=== PATIENT | female | born 2005 | race Caucasian/White ===

== ENCOUNTER 2024-06-24 09:00 | Outpatient (AMB) | payer OTHER, SELFPAY ==
--- NOTE | 2024-06-24 09:04 | MHC.PC.OV ---
Vital Signs 06/24/24 09:05 Height 6 ft 3 in Weight 241 lb BMI 30.1 BP 122/68 Blood Pressure Location Lt brachial Position Sitting Pulse 82 Pulse Source Pulse Oximeter Pulse Oximetry (%) 96 Oxygen Delivery Method Room Air Intake Visit Reasons: annual exam/establish care Field Service Coordinator Required: No Accompanied by: Self / Same As Patient Allergies No Known Allergies Allergy (Verified 06/24/24 09:15) Medication List - Last Reconciled 06/24/24 by Kat Rojas PA-C fluvoxamine ER 150 mg PO BEDTIME levonorgestrel-ethinyl estrad 0.1-20 mg-mcg (Vienva) 1 tab PO DAILY Tobacco use date assessed: 06/24/24 Dental Screening Dental Screen Date: 06/24/24 Did you have a dental visit in the last 12 months?: Yes Did you have a dental problem in the last 6 months where you did not have access to dental care?: No Was dental information given to patient?: Patient has dentist HPI annual exam/establish care HPI Details 18 year old female coming to the office for the first time. She has scheduled an appointment with [facility] in [place] for annual well woman exams and pap smear. She follows with [facility] dermatology and recently had keloid on the left ear removed. SHe does have a few concerns today. She has a rash on her stomach which she previously had on her chest and was treated with anti fungal cream with good resolution. She describes the rash as light yellow spots that are not itchy or painful. She also has a mole on her back that has been growing over the last several years. She does have a history of anxiety and depression and is seeing a counselor at [facility]. [facility] Surgical History (Updated 06/24/24 @ 09:16 by Kat Rojas PA-C) Hx of appendectomy Family History (Updated 06/24/24 @ 09:17 by Kat Rojas PA-C) Father Melanoma Maternal Grandmother Colon cancer Mother Afib Other Mental health disorder Social History Housing: Apartment Patient Tobacco Use Status: Never used Tobacco Tobacco use type: Cigarette e-Cigarette/Vaping Use: Never Used Second Hand Smoke Exposure: No service: No Current occupational status: employed Current occupation: [employer] Cognitive needs: No Hearing needs: No Vision needs: Yes Female Reproductive History Menstrual control method: pills Total pregnancies: 0 Questionnaire PHQ-9 Over the last 2 weeks, how often have you been bothered by any of the following problems? 1. Little interest or pleasure in doing things: several days 2. Feeling down, depressed, or hopeless: several days 3. Trouble falling or staying asleep, or sleeping too much: several days 4. Feeling tired or having little energy: several days 5. Poor appetite or overeating: not at all 6. Feeling bad about yourself - or that you are a failure or have let yourself or your family down: several days 7. Trouble concentrating on things, such as reading the newspaper or watching television: not at all 8. Moving or speaking so slowly that other people could have noticed. Or the opposite - being so fidgety or restless that you have been moving around a lot more than usual: not at all 9. Thoughts that you would be better off or of hurting yourself in some way: not at all Total score: 5 Depression Screening Interpretation: Positive Depression Screening Follow-up: Existing condition and In treatment Depression Screening Done: Yes Source: Developed by Drs. Velasquez Alvarez, Gerri Collins, Roshan Fuller and colleagues, with an educational dez from [employer]. Thrive Questionnaire Date Thrive assessed: 06/24/24 I am a: Patient What is your living situation today?: I have a steady place to live Within the past 12 months, did the food you bought not last and you didn't have the money to get more?: Never true Within the past 12 months, did you worry whether your food would run out before you got money to buy more?: Never true Do you have trouble paying for medicines?: No Do you have trouble getting transportation to medical appointments?: No Do you have trouble paying your heating and electricity bill?: No Do you have trouble taking care of your child, family member or friend?: No Do you have trouble with day-to-day activities such as bathing, preparing meals, shopping, managing finances, etc.?: No Are you currently unemployed and looking for a job?: No Are you interested in more education?: No Please select the resources that you would like help with: None Currently or been in a relationship where the following occur: No concerns reported THRIVE Score: 0 AUDIT C Alcohol Use Questionnaire (AUDIT-C) 1. How often do you have a drink containing alcohol?: Monthly or less 2. How many drinks containing alcohol do you have on a typical day when you are drinking?: 1 or 2 3. How often do you have six or more drinks on one occasion?: Never Total Score: 1 JOSE JUAN-7 AMB Questionnaire JOSE JUAN-7 Date JOSE JUAN - 7 assessed: 06/24/24 Feeling nervous, anxious, or on edge: 3 = Nearly every day Not being able to stop or control worryin = More than half the days Worrying too much about different things: 2 = More than half the days Trouble relaxin = Several days Being so restless that it is hard to sit still: 1 = Several days Becoming easily annoyed or irritable: 1 = Several days Feeling afraid as if something awful might happen: 2 = More than half the days Total JOSE JUAN-7 score (0-4 normal; 5-9 mild; 10-14 moderate; 15-21 severe): 12 Source: Developed by Drs. Velasquez Alvarez, Gerri Collins, Roshan Fuller and colleagues, with an educational dez from [employer]. JOSE JUAN-7 Assessment Billing JOSE JUAN-7 Assessment Tool: JOSE JUAN-7 Assessment 62980 Review of Systems Const Denies body aches, Denies fatigue, Denies fever(s), Denies frequent falls, Denies headache(s) and Denies weakness Eyes Reports no additional complaints and Denies change in vision ENT Denies dysphagia, Denies dizziness, Denies facial pain, Denies headache(s), Denies nasal congestion and Denies odynophagia Card Denies chest pain, Denies syncope, Denies irregular heart rhythm, Denies leg edema, Denies lightheadedness and Denies dyspnea Resp Denies cough and Denies dyspnea GI Denies constipation, Denies dysphagia, Denies dyspepsia, Denies diarrhea, Denies nausea, Denies odynophagia and Denies vomiting Denies urinary frequency, Denies dysuria, Denies urinary hesitancy and Denies urinary urgency Musc Denies back pain and Denies myalgias Skin/Breast Reports as per HPI Neuro Denies dizziness, Denies syncope, Denies frequent falls, Denies headache(s) and Denies weakness Psych Reports anxiety and Reports depression Endo Denies fatigue Physical exam (Primary Care) BMI result Body Mass Index 30.1 PHQ-9: PHQ-9 Score PHQ-9: Total score 5 06/24/24 09:04 Depression Screening Interpretation: Positive Depression Screening Follow-up: Existing condition and In treatment Currently or been in a relationship where the following occur: No concerns reported Const General: cooperative, healthy appearing, comfortable and no acute distress Orientation/consciousness: patient oriented x3 HENMT Head: Yes normocephalic Ears: hearing grossly normal bilaterally, external ears normal, TM's normal bilaterally and EAC's normal General nose exam: Normal external nose present Face and sinus: Yes normal facial exam and Yes sinuses nontender Mouth: Normal oral and palatal mucosa present and tongue normal Throat: Yes posterior oropharynx normal Eyes General: appearance normal, both eyes and all related structures Conjunctivae: conjunctivae normal Pupils: Equal, round and reactive pupils present EOM: EOMs intact bilaterally and No Nystagmus present Neck Neck: Yes normal visual inspection, Yes full ROM and Yes no lymphadenopathy Chest Chest palpation & inspection: normal inspection of the chest Resp Effort & Inspection: normal respiratory effort Auscultation: clear to auscultation bilaterally, no crackles, no rales, no rhonchi, no wheezes and breath sounds present Cardio Rate: regular rate Rhythm: regular rhythm Peripheral pulses: radial pulses present and dorsalis pedis present GI Inspection: Yes normal to inspection and No Abdominal wall edema Palpation (GI): Soft to palpation, not firm, Tenderness to palpation present (GI) (Over incision site) suprapubicly, no guarding and not rigid Auscultation: normal bowel sounds Rectal Exam - Female: deferred General: Yes no CVA tenderness Back/Spine/Pelvis Back: no CVA tenderness Skin Other: multiple small yellow areas of discoloration on the abdomen. 1-2 cm nevi without irregular borders or pain on right mid back. Full body images: 1. nevi Neuro General: patient oriented x3 Cranial nerves: Yes Equal, round and reactive pupils present, Yes Midline tongue present, Yes Ability to bilaterally elevate shoulders present and No Nystagmus present Gait exam (Neuro): Normal gait present Extrem General: Yes normal to inspection, Yes full ROM, No no pedal edema and No edema Psych Speech and movement: Normal speech and movement present Affect: normal affect Insight: Good insight present (Psych) Judgement: Good judgement present (Psych) Assessment and Plan Assessment & Plan (1) Annual physical exam: Code(s): Z00.00 - Encounter for general adult medical examination without abnormal findings Plan: Patient is up-to-date on all routine screenings and vaccinations for her age. Updated blood work ordered today. (2) Anxiety: Code(s): F41.9 - Anxiety disorder, unspecified Plan: Currently working with a counselor with good improvement. Continue on fluvoxamine. (3) Fungal rash of torso: Code(s): B36.9 - Superficial mycosis, unspecified Plan: We will trial topical clotrimazole advised patient to follow up with Dermatology. (4) Atypical nevi: Code(s): D22.9 - Melanocytic nevi, unspecified Plan: Mole was not concerning at this time does not have irregular borders and does not bleed however she has been she had been growing. Advised patient to follow up with Dermatology for possible biopsy. (5) Suprapubic pain: Code(s): R10.2 - Pelvic and perineal pain Plan: Patient did have pain to palpation over suprapubic area and incision sites. Most likely related to deep scar tissue. Ordered urinalysis for further evaluation. Plan This note was constructed using voice recognition software. While every effort has been made to ensure accuracy and gang punch operator, still areas may have been included sometimes these areas may affect the content or meeting of the given symptoms. Total time spent caring for the patient today was 30 minutes. This includes time spent before the visit reviewing the chart, time spent during the visit, and time spent after the visit and documentation. Orders: Orders Complete Blood Count Auto Diff Today Z00.00 - Encounter for general adult medical examination without abnormal findings Vitamin B12 and Folate Today Z00.00 - Encounter for general adult medical examination without abnormal findings Hemoglobin A1c Today Z00.00 - Encounter for general adult medical examination without abnormal findings Comprehensive Met. Panel Today Z00.00 - Encounter for general adult medical examination without abnormal findings Free T4 (Free Thyroxine) Today Z00.00 - Encounter for general adult medical examination without abnormal findings TSH reflex Free T4 Today Z00.00 - Encounter for general adult medical examination without abnormal findings Vitamin D 25-OH (D2 and D3) Today Z00.00 - Encounter for general adult medical examination without abnormal findings UA CC w/rflx Micro + Cult Today R35.89 - Other polyuria Referrals Psychiatry Outpatient Consultation Service F41.9 - Anxiety disorder, unspecified Medications: New clotrimazole 1% 1 appl topical BID 15 grams 0RF Coding Level of Care Code New Pt Prev Care 18-39yr([id number] Diagnoses Annual physical exam Z00.00 Anxiety F41.9 Fungal rash of torso B36.9 Atypical nevi D22.9 Suprapubic pain R10.2 Additional Codes JOSE JUAN-7 Assessment Billing - JOSE JUAN-7 Assessment Tool: JOSE JUAN-7 Assessment [id number] ([id number])
[2024-06-24 09:05] VITALS: BP 122/68; PULSE 82; O2SAT 96; BMI 30.1
== END 2024-06-24 09:37 | disposition home or self-care (01) ==
PROVIDERS: PCP Internal Medicine
DX: Z00.00 Encounter for general adult medical examination without abnormal findings (principal); F41.9 Anxiety disorder, unspecified; B36.9 Superficial mycosis, unspecified; D22.9 Melanocytic nevi, unspecified; R10.2 Pelvic and perineal pain

== ENCOUNTER 2024-06-24 09:00 | Outpatient (REF) | payer OTHER, SELFPAY ==
[2024-06-24 10:08] LABS: MANUAL DIFF FLAG NO
[2024-06-24 10:43] LABS: Basophils Percent Auto 0.3 % (0-2); Eosinophils Absolute Auto 0.1 X10*3/uL (0.0-0.4); Hematocrit 38.6 % (37.0-47.0); Hemoglobin 12.9 g/dl (12.0-16.0); Imm Gran Abs Auto 0.02 X10*3/uL (0.00-0.03); Imm Gran Pct Auto 0.3 % (0.0-0.4); Lymphocytes Absolute Auto 1.9 X10*3/uL (1.2-4.9); Lymphocytes Percent Auto 27.9 % (20-40); Mean Corpuscular HGB Conc 33.4 g/dl (31.0-35.0); Mean Corpuscular Volume 83.7 fL (80.0-98.0); Mean Platelet Volume 10.5 fL (9.4-12.3); Monocytes Absolute Auto 0.5 X10*3/uL (0.1-1.2); Monocytes Percent Auto 7.1 % (2-11); Neutrophils Absolute Auto 4.3 x10*3/uL (2.0-8.3); Neutrophils Percent Auto 63.4 % (45-73); Platelet Count 328 X10*3/uL (160-400); Red Blood Count 4.61 X10*6/uL (4.20-5.50); Red Cell Distribution Width 12.9 % (11.0-16.0); White Blood Count 6.8 X10*3/uL (4.8-10.8)
[2024-06-24 10:50] LABS: Estimated Average Glucose 111 mg/dL; Hemoglobin A1c % 5.5 % (<6.0)
[2024-06-24 11:14] LABS: Alanine Aminotransferase 25 U/L (0-31); Albumin Level 4.3 g/dL (3.5-5.0); Alkaline Phosphatase 119 U/L (39-117); Anion Gap 10 (12-20); Aspartate Amino Transferase 17 U/L (5-31); Bilirubin Total 0.4 mg/dL (0.0-1.0); Blood Urea Nitrogen 9 mg/dL (9-16); Calcium 9.8 mg/dL (8.4-10.2); Carbon Dioxide 27 mmol/L (22-29); Chloride 107 mmol/L (96-108); Estimated Glomerular Filt Rate > 60; Glucose Random 90 mg/dL (60-115); Potassium 4.2 mmol/L (3.3-5.1); Sodium 140 mmol/L (135-145)
[2024-06-24 11:18] LABS: Appearance Urine Clear; Color Urine Yellow; Glucose Urine UA Negative (Negative); Leukocyte Esterase Urine Trace (Negative); Nitrite Urine Negative (Negative); PH 8.5 (5.0-9.0); Specific Gravity - Urine 1.025 (1.005-1.025); UMIC TRIGGER UACC YES; Urine Blood Negative (Negative); Urine Ketones Negative (Negative); Urine Protein Negative (Neg-Trace)
[2024-06-24 11:23] LABS: Bacteria Urine Trace (None Seen); RBC Urine 0-2 /HPF (0-2); WBC Urine 0-5 /HPF (0-5)
[2024-06-24 11:24] LABS: Hyaline Casts Urine 0-2 /LPF (0-2)
[2024-06-24 11:32] LABS: Free T4 (Free Thyroxine) 0.87 ng/dL (0.71-1.85); TSH reflex Free T4 1.89 uIU/mL (0.32-4.0)
[2024-06-24 11:40] LABS: Folate 13.6 ng/mL (> or = 4.0); Vitamin B12 339 pg/mL (200-900)
[2024-07-01 11:03] LABS: Vitamin D 25-OH, D2 <4 ng/mL; Vitamin D 25-OH, D3 31 ng/mL; Vitamin D 25-OH, Total 31 ng/mL (30-100)
== END 2024-06-24 09:01 | disposition home or self-care (01) ==
LOC: HO.LAB 09:00
PROVIDERS: PCP Internal Medicine
DX: Z00.00 Encounter for general adult medical examination without abnormal findings (principal); F41.9 Anxiety disorder, unspecified; B36.9 Superficial mycosis, unspecified; D22.9 Melanocytic nevi, unspecified; R10.2 Pelvic and perineal pain
CPT/HCPCS: 36415; 80053; 81001; 81003; 82306; 82607; 82746; 83036; 84439; 84443; 85025; 96127

== ENCOUNTER 2025-06-27 08:28 | Outpatient (AMB) | payer OTHER, SELFPAY ==
[2025-06-27 08:32] VITALS: BP 136/84; PULSE 102; TEMP 36.2; O2SAT 98; BMI 30.7
--- NOTE | 2025-06-27 08:32 | A.OFFPC_ITS ---
Vital Signs 06/27/25 08:32 Height 6 ft 3 in Weight 245 lb 4 oz BMI 30.7 BP 136/84 Blood Pressure Location Lt brachial Position Sitting Pulse 102 H Pulse Source Pulse Oximeter Temp 97.1 F Temp Source Temporal Artery Scan Pulse Oximetry (%) 98 Oxygen Delivery Method Room Air Intake Visit Reasons: Annual Exam Allergies No Known Allergies Allergy (Verified 06/27/25 08:35) Medication List - Last Reconciled 06/27/25 by Kat Rojas PA-C fluvoxamine 150 mg (1.5 x 100 mg) PO BEDTIME levonorgestrel-ethinyl estrad 0.1-20 mg-mcg (Vienva) 1 tab PO DAILY meclizine 12.5 mg PO TID PRN Tobacco use date assessed: 06/27/25 Dental Screening Dental Screen Date: 06/27/25 Did you have a dental visit in the last 12 months?: Yes Did you have a dental problem in the last 6 months where you did not have access to dental care?: No Was dental information given to patient?: Patient has dentist HPI Annual Exam HPI Details 19-year-old female with a past medical h istory of anxiety last seen 06/2024 coming in for annual exam. Presenting with motion sickness, anxiety related to flying, and gastrointestinal symptoms suggestive of IBS. Motion sickness is particularly problematic during flights, leading to nausea and vomiting despite antiemetic use. Anxiety during flights, especially at takeoff and landing, exacerbates symptoms, with turb ulence also causing nausea. The patient reports abdominal cramping and spasming, with intermittent diarrhea for two months. Stress and dietary factors, including dairy, have been identified as triggers for gastrointestinal symptoms. Previous evaluations included negative parasite tests and an upcoming pelvic ultrasound for abdominal discomfort. The patient has a history of depression, managed with fluvoxamine, which she finds effective. She works on a dairy farm, contributing to a recent case of ringworm, now resolving. eye doctor: yearly [facility] Pap smear: UTD through [facility] Vaccinations: UTD - TD completed 10/2024 [facility] Surgical History Hx of appendectomy Family History Father Melanoma Maternal Grandmother Colon cancer Mother Afib Other Mental health disorder Social History Housing: Apartment Patient Tobacco Use Status: Never used Tobacco Tobacco use type: Cigarette e-Cigarette/Vaping Use: Never Used Second Hand Smoke Exposure: No service: No Current occupational status: employed Current occupation: Outright Cognitive needs: No Hearing needs: No Vision needs: Yes Questionnaire PHQ-9 Over the last 2 weeks, how often have you been bothered by any of the following problems? 1. Little interest or pleasure in doing things: several days 2. Feeling down, depressed, or hopeless: several days 3. Trouble falling or staying asleep, or sleeping too much: several days 4. Feeling tired or having little energy: several days 5. Poor appetite or overeating: not at all 6. Feeling bad about yourself - or that you are a failure or have let yourself or your family down: several days 7. Trouble concentrating on things, such as reading the newspaper or watching television: not at all 8. Moving or speaking so slowly that other people could have noticed. Or the opposite - being so fidgety or restless that you have been moving around a lot more than usual: not at all 9. Thoughts that you would be better off or of hurting yourself in some way: not at all Total score: 5 Depression Screening Interpretation: Positive Depression Screening Follow-up: Existing condition and In treatment Depression Screening Done: Yes 33783 - PHQ-9 Billing: Yes Source: Developed by Drs. Velasquez Alvarez, Gerri Collins, Roshan Fuller and colleagues, with an educational dez from [employer]. Thrive Questionnaire Date Thrive assessed: 06/20/25 I am a: Patient What is your living situation today?: I have a steady place to live Within the past 12 months, did the food you bought not last and you didn't have the money to get more?: Never true Within the past 12 months, did you worry whether your food would run out before you got money to buy more?: Never true Do you have trouble paying for medicines?: No Do you have trouble getting transportation to medical appointments?: No Do you have trouble paying your heating and electricity bill?: No Do you have trouble taking care of your child, family member or friend?: No Do you have trouble with day-to-day activities such as bathing, preparing meals, shopping, managing finances, etc.?: No Are you currently unemployed and looking for a job?: No Are you interested in more education?: No Please select the resources that you would like help with: None Currently or been in a relationship where the following occur: No concerns reported THRIVE Score: 0 AUDIT C Alcohol Use Questionnaire (AUDIT-C) 1. How often do you have a drink containing alcohol?: Never 3. How often do you have six or more drinks on one occasion?: Never Total Score: 0 JOSE JUAN-7 AMB Questionnaire JOSE JUAN-7 Date JOSE JUAN - 7 assessed: 06/27/25 Feeling nervous, anxious, or on edge: 1 = Several days Not being able to stop or control worryin = Several days Worrying too much about different things: 1 = Several days Trouble relaxin = Several days Being so restless that it is hard to sit still: 1 = Several days Becoming easily annoyed or irritable: 1 = Several days Feeling afraid as if something awful might happen: 1 = Several days Total JOSE JUAN-7 score (0-4 normal; 5-9 mild; 10-14 moderate; 15-21 severe): 7 Source: Developed by Drs. Velasquez Alvarez, Gerri Collins, Roshan Fuller and colleagues, with an educational dez from [employer]. JOSE JUAN-7 Assessment Billing JOSE JUAN-7 Assessment Tool: JOSE JUAN-7 Assessment 14719 Review of Systems Const Denies body aches, Denies fatigue, Denies fever(s), Denies frequent falls, Denies headache(s) and Denies weakness Eyes Reports no additional complaints, Denies change in vision and Reports requires corrective lenses ENT Denies dysphagia, Denies dizziness, Denies facial pain, Denies headache(s), Denies nasal congestion and Denies odynophagia Card Denies chest pain, Denies syncope, Denies irregular heart rhythm, Denies leg edema, Denies lightheadedness and Denies dyspnea Resp Denies cough and Denies dyspnea GI Reports abdominal pain (as per HPI ), Denies constipation, Denies dysphagia, Denies dyspepsia, Reports diarrhea, Denies nausea, Denies odynophagia and Denies vomiting Denies urinary frequency, Denies dysuria, Denies urinary hesitancy and Denies urinary urgency Musc Denies back pain and Denies myalgias Skin/Breast Reports system reviewed and no additional complaints, except as documented Neuro Denies dizziness, Denies syncope, Denies frequent falls, Denies headache(s) and Denies weakness Psych Reports no additional complaints Endo Denies fatigue Physical exam (Primary Care) Vital Signs: Last Vital Signs Temp 97.1 F 06/27/25 08:32 Pulse 102 H 06/27/25 08:32 BP 136/84 06/27/25 08:32 Pulse Ox 98 06/27/25 08:32 Oxygen Delivery Method Room Air 06/27/25 08:32 BMI result Body Mass Index 30.7 Tobacco/Smoking Status: Tobacco use Status Tobacco use date assessed 06/27/25 06/27/25 08:36 Patient Tobacco Use Status Never used Tobacco 06/27/25 08:34 Tobacco use type Cigarette 06/27/25 08:34 e-Cigarette/Vaping Use Never Used 06/27/25 08:34 PHQ-9: PHQ-9 Score PHQ-9: Total score 5 06/27/25 08:47 Depression Screening Interpretation: Positive Depression Screening Follow-up: Existing condition and In treatment Thrive Assessment: Date of Thrive Assessment Date Thrive assessed 06/20/25 06/27/25 08:34 Currently or been in a relationship where the following occur: No concerns reported Const General: cooperative, healthy appearing, comfortable and no acute distress Orientation/consciousness: patient oriented x3 HENMT Head: Yes normocephalic Ears: hearing grossly normal bilaterally, external ears normal, TM's normal bilaterally and EAC's normal General nose exam: Normal external nose present Face and sinus: Yes normal facial exam and Yes sinuses nontender Mouth: Normal oral and palatal mucosa present and tongue normal Throat: Yes posterior oropharynx normal Eyes General: appearance normal, both eyes and all related structures Conjunctivae: conjunctivae normal Pupils: Equal, round and reactive pupils present EOM: EOMs intact bilaterally and No Nystagmus present Neck Neck: Yes normal visual inspection, Yes full ROM and Yes no lymphadenopathy Chest Chest palpation & inspection: normal inspection of the chest Resp Effort & Inspection: normal respiratory effort Auscultation: clear to auscultation bilaterally, no crackles, no rales, no rhonchi, no wheezes and breath sounds present Cardio Rate: regular rate Rhythm: regular rhythm Peripheral pulses: radial pulses present and dorsalis pedis present GI Inspection: Yes normal to inspection and No Abdominal wall edema Palpation (GI): Soft to palpation, not firm, Tenderness to palpation present (GI) in the epigastrum and suprapubicly, no guarding and not rigid Auscultation: normal bowel sounds Rectal Exam - Female: deferred General: Yes no CVA tenderness Back/Spine/Pelvis Back: no CVA tenderness Skin General skin exam: no rashes or lesions noted Neuro General: patient oriented x3 Cranial nerves: Yes Equal, round and reactive pupils present, Yes Midline tongue present, Yes Ability to bilaterally elevate shoulders present and No Nystagmus present Gait exam (Neuro): Normal gait present Extrem General: Yes normal to inspection, Yes full ROM, No no pedal edema and No edema Psych Speech and movement: Normal speech and movement present Affect: normal affect Insight: Good insight present (Psych) Judgement: Good judgement present (Psych) Coding Level of Care Code Est Pt Prev Care 18-39y(40724) Diagnoses Annual physical exam Z00.00 Anxiety F41.9 Diarrhea R19.7 Additional Codes JOSE JUAN-7 Assessment Billing - JOSE JUAN-7 Assessment Tool: JOSE JUAN-7 Assessment 54147 ([id number]) PHQ-9 - 08318 - PHQ-9 Billing: Yes ([id number]) Assessment & Plan Assessment & Plan (1) Annual physical exam: Code(s): Z00.00 - Encounter for general adult medical examination without abnormal findings Category: Medical Plan: Patient is up to date on all recommended routine screenings ans vaccinations for her age. Blood work is ordered today. Healthy diet and regular exercise is encouraged. Plan to follow up yearly or sooner as needed. (2) Anxiety: Code(s): F41.9 - Anxiety disorder, unspecified Category: Medical Plan: The patient reports anxiety during flights, especially during takeoff and landing, exacerbating motion sickness symptoms. A short-term prescription of benzodiazepines was considered to manage anxiety, with caution advised due to potential drowsiness. (3) Diarrhea: Code(s): R19.7 - Diarrhea, unspecified Category: Medical Plan: The patient reports abdominal cramping and spasming, with intermittent diarrhea over the past two months. A pelvic ultrasound is scheduled to further investigate abdominal discomfort. Dietary modifications, including a low FODMAP diet and fiber supplementation, were recommended to manage symptoms. Plan This note was constructed using voice recognition software. While every effort has been made to ensure accuracy and small kick press operator, still areas may have been included sometimes these areas may affect the content or meeting of the given symptoms. Total time spent caring for the patient today was 30 minutes. This includes time spent before the visit reviewing the chart, time spent during the visit, and time spent after the visit and documentation. Patient was informed and verbally consented to the use of an ambient scribe for clinic note documentation during this visit. Orders: Orders Complete Blood Count Auto Diff Today R19.7 - Diarrhea, unspecified, Z00.00 - Encounter for general adult medical examination without abnormal findings Comprehensive Met. Panel Today R19.7 - Diarrhea, unspecified, Z00.00 - Encounter for general adult medical examination without abnormal findings Vitamin B12 and Folate Today R19.7 - Diarrhea, unspecified, Z13.21 - Encounter for screening for nutritional disorder Free T4 (Free Thyroxine) Today F41.9 - Anxiety disorder, unspecified, Z00.00 - Encounter for general adult medical examination without abnormal findings TSH reflex Free T4 Today F41.9 - Anxiety disorder, unspecified, Z13.29 - Encounter for screening for other suspected endocrine disorder Vitamin D 25-OH Total Today R19.7 - Diarrhea, unspecified, Z13.21 - Encounter for screening for nutritional disorder
--- OUTSIDE RECORDS SUMMARY | 2025-06-27 09:42 | XMS_ITS | Encounter Summary ---
Author Organization [facility] Address [address] [place] [address] Phone Care Team Providers Care Plans Examiner Name Role Phone Kathya Strauss DO Primary Care Provider [phone] Reason for Visit * Reason Comments Med Refill Encounter Details Date Type Department Care Team (Late st Contact Info) Description 03/18/2022 Refill [facility] [address] [place] [address] Kathya Strauss DO [address] [place] [address] Encounter for initial prescription of transdermal patch hormonal contraceptive device Social History Tobacco Use Types Packs/Day Years Used Date Smoking Tobacco: Never Smokeless Tobacco: Never Comments:Never smoker Alcohol Use Standard Drinks/Week Comments No 0 (1 standard drink = 0.6 oz pur e alcohol) Hunger/Food Answer Date Recorded In the last 12 months, did y ou or your family ever eat less than you felt you should because there wasn't enough money for food? No 04/25/2021 Stable Housing Answer Date Recorded Are you worried that in the next 2 months you may not have stable housing? No 04/25/2021 Transportation Concerns Answer Date Rec orded In the last 12 months, have you or your family ever had to go without healthcare because you didn't have a way to get there? No 04/25/2021 Hazards in Home Answer Date Recorded Think about the place you li ve. Do you have problems with any of the following? Pests (mice or roaches), mold, no/not working smoke detectors, water leaks, no window guards. No 2020 Financing Utilities Answer Date Recorde d In the last 12 months, has t he electric, gas, oil, or water company threatened to shut off your services in your home? No 04/25/2021 Safety at Home Answer Date Recorded Are you or your family worried about feeling saf e in your home? No 04/25/2021 Outside Support Answer Date Recorded Do you feel that you need mo re support from other people or programs to help you care for yourself or your family? No 04/25/2021 Understanding Health Concerns Answer Da te Recorded Do you need help understandi ng your or your child's healthcare needs (diagnosis, medications, plan, etc.)? No 04/25/2021 Financing Health Concerns Answer Date R ecorded In the last 12 months, was t here a time when your child needed to see a doctor or get medications or supplies but could not because of cost? No 04/25/2021 Missing School or Work Answer Date Blake rded Did you or your child miss s chool or work because of a health problem that could have been avoided? No 04/25/2021 Comments No Sex and Gender Information Value Date Recorded Sex Assigned at Not on file Legal Sex Female 5:12 PM EDT Gender Identity Female 06/01/2021 1:02 PM EDT Sexual Orientation Straight 04/25/2023 1: 50 PM EDT documented as of this encounter Miscellaneous Notes * Telephone Encounter - Jadon Malloy LPN - 03/19/2022 10:13 AM EDT Pharm requesting refill of Norelgestromin-ethinyl estradiol. Last PE 04/25/21 documented in this encounter Plan of Treatment Not on file documented as of this encounter Visit Diagnoses Diagnosis Encounter for initial prescription of transdermal patch hormonal contraceptive device documented in this encounter Care Teams Plans Examiner Relationship Specialty Start Date End Date Kathya Strauss DO [address] [facility] MICHAEL Zhang [address] PCP - General 05/16/17 05/24/24 documented as of this encounter
--- OUTSIDE RECORDS SUMMARY | 2025-06-27 09:42 | XMS_ITS | Encounter Summary ---
Author Organization [facility] Address [address] [place] [id number] Phone Care Team Providers Care Assembler Dc Field Ring Name Role Phone Kathya Strauss DO Primary Care Provider [phone] Reason for Visit * Reason Onset Date Comments Med Refill 02/09/2022 Encounter Details Date Type Department Care Team (Late st Contact Info) Description 02/09/2022 Refill [facility] [place] [address] [place] [address] Kathya Strauss DO [address] [place] [address] Anxiety Social History Tobacco Use Types Packs/Day Years [...] encounter Miscellaneous Notes * Telephone Encounter - Ligia Hernández LPN - 02/10/2022 11:07 AM EDT My chart refill request / current with visits documented in this encounter Plan of Treatment Not on file documented as of this encounter Visit Diagnoses Diagnosis Anxiety Anxiety state, unspecified documented in this encounter Care Teams Assembler Dc Field Ring Relationship Specialty Start Date End Date Kathya Strauss DO [address] [place] [address] MIC[place]EL Zhang [address] PCP - General 05/16/17 05/24/24 documented as of this encounter
--- OUTSIDE RECORDS SUMMARY | 2025-06-27 09:42 | XMS_ITS | Encounter Summary ---
Author Organization [facility] Address [address] [place] [address] Care Team Providers Care Tape Editor Name Role Phone Kathya Strauss DO Primary Care Provider [phone] Encounter Details Date Type Department Care Team (Late st Contact Info) Description 06/10/2025 Orders Only [facility] Pathology & Laboratory Medicine - [address] [address] Melissa Borja MD [address] [place], [place] [address] Diarrhea, unspecified Social History Tobacco Use Types Packs/Day Years Used Date Smoking Tobacco: Never Smokeless Tobacco: Never Alcohol Use Standard Drinks/Week Comments Not Currently 0 (1 standard drink = 0.6 oz pur e alcohol) Comments No Sex and Gender Information Value Date Recorded Sex Assigned at Not on file Legal Sex Female 14:17 EDT Gender Identity Female 07/03/2023 14:22 EDT Sexual Orientation Not on file documented as of this encounter Plan of Treatment Upcoming Encounters Date Type Department Care Team (Late st Contact Info) Description 07/04/2025 7:00 EDT Appointment Kaylen Cruz [address] [place] [address] 08/02/2025 15:00 EDT Office Visit [facility] OBGYN Services - [address] [id number] Suni Aguayo NP [address] [facility], [address] [place] [id number] documented as of this encounter Procedures Procedure Name Priority Date/Time Associated Diagnosis Comments CALPROTECTIN, F Routine 06/09/2025 16:00 EDT Diarrhea, unspecified documented in this encounter Results * CALPROTECTIN, F (06/09/2025 16:00 EDT) Calprotectin,F <50.0 <50.0 (Normal) mcg/g 06/14/2025 20:08 EDT [facility] Comment: Test Performed by: [facility] [address] [place] [address] Scheduler: Zion Guerra Ph.D.; CLIA# [id number] Feces Stool Collect / Unknown 06/09/2025 16:00 EDT 06/10/2025 17:18 EDT us Melissa Borja MD GEN LAB UNIT COLLECT ORDERA BLES Final Result Performing Organization Address City/State/[facility] Co de Phone Number [facility] [address] [place] [address] documented in this encounter Visit Diagnoses Diagnosis Diarrhea, unspecified documented in this encounter Care Teams Tape Editor Relationship Specialty Start Date End Date Kathya Strauss DO [address] [place] [address] PCP - General Pediatrics - Primary Care 07/03/23 documented as of this encounter
--- OUTSIDE RECORDS SUMMARY | 2025-06-27 09:43 | XMS_ITS | Clinical Summary ---
Author Organization [facility] Address [address] [place] [phone] Phone Care Team Providers Care Drag Out Man Name Role Phone Unavailable Primary Care Provider Unavailabl e Allergies No known active allergies Medications scopolamine 1 MG/3DAYS patch 72 hourIndications:M otion sickness, initial encounter Apply 4 hours before extended car trip; remove 1 hour before car trip ends 1 patch 2 4 Active levonorgestrel-et hinyl estradiol (Orsythia) 0.1-20 MG-MCG per tabletIndications :Encounter for BCP ( control pills) initial prescription Take 1 tablet by mouth daily. 84 tablet 4 Active fluvoxaMINE 100 MG tabletIndications :Anxiety Take 1.5 tablets (150 mg total) by mouth daily. 135 tablet 4 Active Active Problems Problem Noted Date Diagnosed Date GERD without esophagitis 04/24/2020 Overview (04/24/2020): rec prn pepcid and avoid triggers Assessment & Plan (04/24/2022 8:51 AM EDT): occasional rec prn pepcid and avoid triggers Anxiety 04/02/2019 Overview (10/02/2023): On fluvoxamine since - no difference in fatigue w/ AM or PM dosing [employer] student- seeing on campus counseling- same therapist Assessment & Plan (10/02/2023 8:41 AM EST): Doing well on fluvoxamine 150mg- has been on this med since 2020 Briefly discussed if she might be interested in trialing off med at some point She's TFing to new adult PCP for PE this summer so we decided to keep her meds same until she establishes care w/ new PCP I can RF med until summer 2023 Assessment & Plan (05/30/2023 2:53 PM EDT): Inc in fluvoxamine dose was helpful- wants to stay on current dose 150mg JOSE JUAN much improved Returning to [employer] this weekend Plan med check when home for winter break Will get RFs locally and mom will send med Assessment & Plan (04/25/2023 2:53 PM EDT): JOSE JUAN 12 today Inc fluvoxamine to 150mg Med check in 5w She could see campus health for med mgmt @ [employer]- we looked at website together Has [employer] therapist Assessment & Plan (09/25/2022 3:09 PM EST): Stable on fluvoxamine 100mg JOSE JUAN in mild range Seeing on campus counseling Was not able to get a single but is moving into a double w/ a friend next semester FU @ PE in APR- brief discussion of trial wean off med next summer; she is reluctant to do this and I would be OK w/ that if she is not ready Assessment & Plan (04/24/2022 10:40 AM EDT): Stable on fluvoxamine 100mg Going to [employer]- discussed access to campus counseling and encouraged to seek out if feeling stressed Med check when she is back home for winter break Assessment & Plan (01/28/2022 3:30 PM EDT): Stable on fluvoxamine 100mg JOSE JUAN screen neg Decided to hold off on therapist- going to [employer] in the Fall Med check when here for PE in APR Assessment & Plan (10/24/2021 9:31 AM EST): Stable on fluvoxamine 100mg JOSE JUAN screen neg today Cont same dose Reports too busy to find therapist at the moment Would limit daytime naps to <1h Can try taking med in AM to see if this makes a difference- if not, go back to taking med @ night Med check in APR Assessment & Plan (08/29/2021 3:27 PM EST): JOSE JUAN about the same has last month- 4 Reports again stress and anxiety w/ school Has list of community agencies but has not called to get on list- encouraged to do this Would be willing to try brief intervention for stress mgmt around school w/ another [facility]- I will check w/ Sherrell Kaur Inc fluvoxamine to 100mg Med check in a month Reminded to get flu vaccine Assessment & Plan (07/30/2021 5:25 PM EDT): JOSE JUAN low scoring however appears her anxiety and stress is increased esteban w/ school stress She is on low dose fluvoxamine and she had a great initial response to it so will try inc to 75mg No ADRs so far [facility] gave her list of agencies- advised that her mom make the phone calls to get her on a list for therapist D/W [facility] whom she is seeing- will have at least one last session to focus on stress mgmt around school and college apps Med check in a month Assessment & Plan (06/01/2021 1:36 PM EDT): Licking back from a therapist about setting up a time to see her- great Responding well to fluvoxamine 50mg JOSE JUAN much improved Cont same dose Med check in 6-8w She will send me her game schedule so I can book her for med check before a 5pm game Assessment & Plan (04/25/2021 12:53 PM EDT): Ongoing since last year and worse due to pandemic JOSE JUAN positive Has some OCD behaviors around germs- reports this is better though Sleeping well overall Mom tells me that teen's aunt is a [employer] and recommended a specific medication- we reviewed various SSRIs that could be options for her to try Mom will check w/ aunt and get back to me Will need to see me frequently for med checks once we decide on med Has tried to find therapist but no luck over this past year- RTO for intake w/ [facility] Assessment & Plan (04/25/2020 8:37 AM EDT): Mom tried several therapists last year- no one called her back Mom will try [employer] website and gave a few other options to call Assessment & Plan (04/02/2019 9:04 AM EDT): Referred for intake with in house Resolved Problems Problem Noted Date Diagnosed Date Resolved Date History of COVID-19 04/25/2021 04/25/20 21 Overview (04/25/2021): Cards cleared EKG wnl 2020 Immunizations Immunization Administration Dates Next Due COVID-19 Pfizer, bivalent, 12+ years 09/10/2022 DTaP 5 01/04/2008, 5,05/17/2004,03/08,01/11/2004 HPV Vaccine 9 Valent 09/06/2016,03/29/2016,02/18 Hep A, ped/adol 02/19/2016,02/15/2015 Hep B, ped/adol 08/09/2004,05/17/2004,2003 Hib (HbOC) 02/12/2005,05/17/2004 Hib (PRP-T) 03/08/2004,01/11/2004 IPV 01/04/2008, 4,03/08/2004,01/10 Influenza Split 09/22/2012 Influenza, injectable, quadr ivalent, preservative free 08/07/2020,06/13/2016 Influenza, injectable, trivalent 08/24/2008,05/2005,08/09/2004 MMR 11/13/2004 MMRV 01/04/2008 Meningococcal B Trumenba 04/25/2023,04/24/2022 Meningococcal Conj (Menactra) MCV4P 04/24/2020,0 02/15/2015 Pneumococcal Conjugate 02/12/2005,2003,03/08/2004,01/10 Tdap 02/15/2015 Varicella 11/13/2004 Family History Medical History Relation Name Comments No Known Problems Brother Romel Simon ADD / ADHD Father Colin Simon Anxiety disorder Father Colin Simon Depression Father Colin Simon Eye cancer Father Colin Simon ADD / ADHD Father's Sister Anxiety disorder Father's Sister Depression Father's Sister No Known Problems Maternal Grandfather Colon cancer Maternal Grandmother Hypertension Maternal Grandmother Anxiety disorder Mother Veronica Simon Arrhythmia Mother Veronica Simon Atrial fibrillation Mother Veronica Simon Depression Mother Veronica Simon Migraines Mother Veronica Simon Bipolar disorder Mother's Brother Stomach cancer Paternal Grandfather Depression Paternal Grandmother Relation Name Status Comments Brother Romel Simon Alive Brother: Alive and well Father Colin Simon Alive Father: Aliv e and well Father's Sister Maternal Grandfather Alive Maternal Grandmother Materna l grandmother: Hypertension, Cancer -, Hyperlipidemia Mother Veronica Simon Alive Mother: Heart disease, arrhythmia Mother's Brother Other No family histo ry of throbmophilia, Family history of Obesity, Family history of Migraines, Family history of Cancer, colon Paternal Grandfather Paternal Grandmother Social History Tobacco Use Types Packs/Day Years Used Date Smoking Tobacco: Never Smokeless Tobacco: Never Tobacco Cessation:Counseling Given: Yes Comments:Never smoker Alcohol Use Standard Drinks/Week Comments No 0 (1 standard drink = 0.6 oz pur e alcohol) Hunger/Food Answer Date Recorded In the last 12 months, did y brandt or your family ever eat less than you felt you should because there wasn't enough money for food? No 04/18/2023 Stable Housing Answer Date Recorded Are you worried that in the next 2 months you may not have stable housing? No 04/18/2023 Transportation Concerns Answer Date Rec orded In the last 12 months, have you or your family ever had to go without healthcare because you didn't have a way to get there? No 04/18/2023 Hazards in Home Answer Date Recorded Think about the place you li ve. Do you have problems with any of the following? Pests (mice or roaches), mold, no/not working smoke detectors, water leaks, no window guards. No 2022 Financing Utilities Answer Date Recorde d In the last 12 months, has t he electric, gas, oil, or water company threatened to shut off your services in your home? No 04/18/2023 Safety at Home Answer Date Recorded Are you or your family worried about feeling saf e in your home? No 04/18/2023 Outside Support Answer Date Recorded Do you feel that you need mo re support from other people or programs to help you care for yourself or your family? No 04/18/2023 Understanding Health Concerns Answer Da te Recorded Do you need help understandi ng your or your child's healthcare needs (diagnosis, medications, plan, etc.)? No 04/18/2023 Financing Health Concerns Answer Date R ecorded In the last 12 months, was t here a time when your child needed to see a doctor or get medications or supplies but could not because of cost? No 04/18/2023 Missing School or Work Answer Date Blake rded Did you or your child miss s chool or work because of a health problem that could have been avoided? No 04/18/2023 Comments No Sex and Gender Information Value Date Recorded Sex Assigned at Not on file Legal Sex Female 5:12 PM EDT Gender Identity Female 06/01/2021 1:02 PM EDT Sexual Orientation Straight 04/25/2023 1: 50 PM EDT Last Filed Vital Signs Vital Sign Reading Time Taken Comments Blood Pressure 122/72 10/02/2023 8:38 AM EST Pulse 82 10/02/2023 8:05 AM EST Temperature 36.3 C (97.4 F) 10/02/2023 8:05 AM EST Respiratory Rate - - Oxygen Saturation - - Inhaled Oxygen Concentration - - Weight 112 kg (246 lb 9.6 oz) 10/02/2023 8:05 AM EST Height 190.5 cm (6' 3 ) 04/25/2023 1:08 PM EDT Body Mass Index 30.82 04/25/2023 1:08 PM EDT Plan of Treatment Health Maintenance Due Date Last Done Comments DTaP,Tdap,and Td Vaccines (7 - Td or Tdap) 02/15/2025 02/15/2015, 01/04/2008, 05/29/2005, Additional history exists Influenza Vaccines (#1) 2025 08/07/20 20, 06/13/2016, 09/22/2012, Additional history exists COVID-19 Vaccine (2024-2 6 season) 2025 09/10/2022, 11/11/2021, 05/23/2021, Additional history exists Hepatitis B Vaccines Completed 08/09/2004, 05/17/2004, 2003 HIB Vaccines Completed 02/12/2005, 05/06, 03/08/2004, Additional history exists Pneumococcal Vaccine Completed 02/12/2005, 05/17/2004, 03/08/2004, Additional history exists IPV Vaccines Completed 01/04/2008, 01/2004, 03/08/2004, Additional history exists MMR Vaccines Completed 01/04/2008, 11/13/2004 Varicella Vaccines Completed 01/04/2008, 11/13/2004 Hepatitis A Vaccines Completed 02/19/2016, 02/16/20 15 HPV Vaccines Completed 09/06/2016, 03/07, 02/19/2016 Meningococcal Vaccine Completed 04/24/2020, 015 Men B Vaccine Completed 04/25/2023, 04/24/2022 Procedures * Due to [place] [employer] law, this organization might not be sharing sensitive test results. Procedure Name Priority Date/Time Associated Diagnosis Comments CHLAMYDIA AND GONORRHEA, AMPLIFIED Routine 04/25/2023 1:57 PM EDT Encounter for screening examination for chlamydial infection from Last 3 Months or Most Recently Relevant to Health Maintenance Results * Due to [place] [employer] law, this organization might not be sharing sensitive test results. * Chlamydia and Gonorrhoea, Amplified (04/25/2023 1:57 PM EDT) Chlamydia Trachomatis, DNA Probe NEGATIVE (NEG) [facility] Comment: No Chlamydia Trachomatis RNA detected in this patient's sample (REFERENCE RANGE/NORMAL VALUE: NOT DETECTED) Note: This test uses manager of development- mediated amplification method to detect rRNA from C. Trachomatis URINE GC AMP PROBE NEGATIVE (NEG) [facility] Comment: No Neisseria Gonorrhoeae RNA detected in this patient's sample (REFERENCE RANGE/NORMAL VALUE: NOT DETECTED) NOTE: This test uses manager of development-mediated amplification method to detect rRNA from N.Gonorrhoeae. A negative result does not preclude infection. In the case of a negative urine result, testing of an endocervical(female) or urethral (male) specimen is recommended if there is high clinical suspicion of infection. Due to very high sensitivity of Nucleic Acid Amplification Test, false positive results may occur. Therefore, specimen handling is extremely important. In patients in whom the disease is unlikely, additional sample for testing should be considered after an initial positive result. The performance characteristics of this test have not been evaluated in children. The Aptima Combo2 assay is not intended for the evaluation of suspected sexual abuse or for other medico-legal indications. The ordering provider should assess if the patient had consensual sex without risk of sexual abuse. Consult the [facility] if needed. Contact phone number . Therapeutic failure or success cannot be determined with the Aptima Combo2 assay since nucleic acid may persist following appropriate antimicrobial therapy. The Centers for Disease Control and Prevention (CDC) recommends confirmatory retesting using culture or a different nucleic acid amplification test when positive results occur, if indicated. Testing performed or reported by [facility], a Service of [facility], [address] [place] [address] Wayne Escamilla MD, Solutions Consultant [facility]# [id number] Urine (Urine) 04/25/2023 1:5 7 PM EDT 04/26/2023 12:24 AM EDT us Kathya Strauss DO LAB MICROBIOLOGY - GENERAL ORDER [place] Final Result [facility] from Last 3 Months or Most Recently Relevant to Health Maintenance Insurance [facility] Address: [address] [place] [id number]
--- OUTSIDE RECORDS SUMMARY | 2025-06-27 09:43 | XMS_ITS | Encounter Summary ---
Author Organization [facility] Address [address] [place] [phone] Phone Care Team Providers Care Multi Craft Maintenance Technician Name Role Phone Kathya Strauss DO Primary Care Provider [phone] Encounter Details Date Type Department Care Team (Late st Contact Info) Description 02/22/[address] [facility] Family Medicine [address] [place] [address] Family Medicine, Physician [address], [place] [id number] Social History Tobacco Use Types Packs/Day Years Used Date Smoking Tobacco: Never Assessed Comments Unknown Sex and Gender Information Value Date Recorded Sex Assigned at Not on file Legal Sex Female 5:12 PM EDT Gender Identity Female 06/01/2021 1:02 PM EDT Sexual Orientation Straight 04/25/2023 1: 50 PM EDT documented as of this encounter Plan of Treatment Not on file documented as of this encounter Visit Diagnoses Not on filedocumented in this encounter Care Teams Multi Craft Maintenance Technician Relationship Specialty Start Date End Date Kathya Strauss DO [address] [place] [address] PCP - General 05/16/17 05/24/24 documented as of this encounter
--- OUTSIDE RECORDS SUMMARY | 2025-06-27 09:43 | XMS_ITS | Encounter Summary ---
Author Organization [facility] Address [address] [place] [phone] Phone Care Team Providers Care Customer Service Voice Name Role Phone Kathya Strauss DO Primary Care Provider [phone] Reason for Visit * Reason Onset Date Comments Med Refill 07/04/2022 Encounter Details Date Type Department Care Team (Late st Contact Info) Description 07/04/2022 Refill [facility] [address] [place] [address] Kathya Strauss DO [address] [place] [address] Encounter for BCP ( control pills) initial prescription; Anxiety Social History Tobacco Use Types Packs/Day [...] there wasn't enough money for food? No 04/22/2022 Stable Housing Answer Date Recorded Are you worried that in the next 2 months you may not have stable housing? No 04/22/2022 Transportation Concerns Answer Date Rec orded In the last 12 months, have you or your family ever had to go without healthcare because you didn't have a way to get there? No 04/22/2022 Hazards in Home Answer Date Recorded Think about the place you li ve. Do you have problems with any of the following? Pests (mice or roaches), mold, no/not working smoke detectors, water leaks, no window guards. No 2021 Financing Utilities Answer Date Recorde d In the last 12 months, has t he electric, gas, oil, or water company threatened to shut off your services in your home? No 04/22/2022 Safety at Home Answer Date Recorded Are you or your family worried about feeling saf e in your home? No 04/22/2022 Outside Support Answer Date Recorded Do you feel that you need mo re support from other people or programs to help you care for yourself or your family? No 04/22/2022 Understanding Health Concerns Answer Da te Recorded Do you need help understandi ng your or your child's healthcare needs (diagnosis, medications, plan, etc.)? No 04/22/2022 Financing Health Concerns Answer Date R ecorded In the last 12 months, was t here a time when your child needed to see a doctor or get medications or supplies but could not because of cost? No 04/22/2022 Missing School or Work Answer Date Blake rded Did you or your child miss s chool or work because of a health problem that could have been avoided? No 04/22/2022 Comments No Sex and Gender Information Value Date Recorded Sex Assigned at Not on file Legal Sex Female 5:12 PM EDT Gender Identity Female 06/01/2021 1:02 PM EDT Sexual Orientation Straight 04/25/2023 1: 50 PM EDT documented as of this encounter Miscellaneous Notes * Telephone Encounter - Kat Christianson LPN - 07/04/2022 1:43 PM EDT Mychart refill request fro fluvoxamine 100mg and levonorgestrel-ethinyl estradiol Pt states Dr. Strauss agreed to send 90 fluvoxamine tablets per refill d/t being away at college. Please advise. documented in this encounter Plan of Treatment Not on file documented as of this encounter Visit Diagnoses Diagnosis Encounter for BCP ( control pills) initial prescription General counseling for prescription of oral contraceptives Anxiety Anxiety state, unspecified documented in this encounter Care Teams Customer Service Voice Relationship Specialty Start Date End Date Kathya Strauss DO [address] [facility] [place] [id number] PCP - General 05/16/17 05/24/24 documented as of this encounter
--- OUTSIDE RECORDS SUMMARY | 2025-06-27 09:43 | XMS_ITS | Clinical Summary ---
Author Organization [facility] Address [address] [place] [address] Care Team Providers Care Defect Cutter Name Role Phone Kathya Strauss DO Primary Care Provider [phone] Allergies No known active allergies Medications levonorgestrel- ethinyl estradiol (AVIANE) 0.1-20 mg-mcg per tablet Take 1 Tablet by mouth daily. Active fluvoxaMINE (LUVOX) 100 mg tablet Take 1 Tablet by mouth daily. Active acetaminophen (TYLENOL) 500 mg tablet Take 2 Tablets by mouth every 6 hours as needed for Pain. 01/23/2024 Active Active Problems Problem Noted Date Diagnosed Date Well woman exam 02/10/2025 Assessment & Plan (02/10/2025 9:20 EDT): First pap collected with GC/CT. Discussed rationale for pap collection. CBE normal. Education provided on various alternative forms of contraception per pt questions, may at some point be interested in IUD or Nexplanon. Discussed these options in terms of mechanism of action, efficacy, risks of placement and placement procedure, options for pain management, and expected bleeding profile. Discussed lubrication with intercourse, can also try coconut oil for moisturization after intercourse Unknown cause of uterine/lower abdominal tenderness. Advised to reach out if pain worsens or is experienced at other times. BP slightly elevated in visit today, discussed this in relationship to estrogen-containing contraceptive. Pt does report elevated BP at provider offices, isn't sure if this is also the case outside of care appointments. I advised her to obtain home BP cuff to check for elevated BP at home. If she consistently notes BP in 130s-140s/80s-90s, advised to f/u with her PCP. I encouraged her to reach out with any new diagnosis of hypertension as this may change her recommended method of BCM. She is otherwise low-risk for estrogen containin BCM. F/u in 1 year for annual exam or sooner as needed or if alternative contraception is desired. Appendicitis 01/23/2024 Appendicitis, unspecified appendicitis type 01/04 Resolved Problems Problem Noted Date Diagnosed Date Resolved Date Cervical cancer screening 02/10/2025 Encounters Date Type Department Care Team Description 06/10/[address] [facility] [address] [address] Damari Centeno Diarrhea, unspecified 06/10/[address] [facility] [address] [address] Melissa Borja MD Diarrhea, unspecified 06/09/2025 18:45 EDT - 06/09/2025 23:59 EDT Hospital Encounter [facility] [address] [address] [facility] Discharge Disposition: Home or Self Care 05/30/[address] [facility] [address] [address] Melissa Borja MD Diarrhea, unspecified 05/30/[address] [facility] [address] [address] Melissa Borja MD Diarrhea, unspecified 05/30/[address] [facility] [address] [address] Melissa Borja MD Diarrhea, unspecified from Last 3 Months Surgical History Surgery Date Site/Laterality Comments LAPAROSCOPIC APPENDECTOMY 10/06/2023 - 10/05/2024 Medical History Medical History Date Comments Generalized anxiety disorder Family History Medical History Relation Comments No Known Brother Melanoma Father in eye Cancer Maternal Grandfather uncertain o rigin Colon Cancer Maternal Grandmother recovered, lived into 90s Atrial fibrillation Mother Clotting Disorder Mother Cancer Paternal Grandfather thinks it w as pancreatic Dementia Paternal Grandmother Relation Status Comments Brother Alive Father Alive Maternal Grandfather Maternal Grandmother Mother Alive Paternal Grandfather Paternal Grandmother Social History Tobacco Use Types Packs/Day Years Used Date Smoking Tobacco: Never Smokeless Tobacco: Never Tobacco Cessation:Counseling Given: Not Answered Alcohol Use Standard Drinks/Week Comments Not Currently 0 (1 standard drink = 0.6 oz pur e alcohol) Comments No Sex and Gender Information Value Date Recorded Sex Assigned at Not on file Legal Sex Female 14:17 EDT Gender Identity Female 07/03/2023 14:22 EDT Sexual Orientation Not on file Obstetrics History Para Term AB IAB SAB Ectopic Multiple Livin g Live Births 0 0 0 0 0 0 0 0 0 0 0 Last Filed Vital Signs Vital Sign Reading Time Taken Comments Blood Pressure 138/86 02/10/2025 0816 EDT Pulse 76 02/10/2024 1439 EDT Temperature 36.4 C (97.5 F) 01/23/20242044 EDT Respiratory Rate 15 01/23/20242044 EDT Oxygen Saturation 98% 02/10/2024 1439 EDT Inhaled Oxygen Concentration - - Weight 113.4 kg (250 lb) 02/10/2025 0816 EDT Height 190.5 cm (6' 3 ) 02/10/2025 0816 EDT Body Mass Index 31.25 02/10/2025 0816 EDT Plan of Treatment Upcoming Encounters Date Type Department Care Team (Late st Contact Info) Description 07/04/2025 7:00 EDT Appointment Kaylen Roth Ultrasound [address] [place], [place] [address] 08/02/2025 15:00 EDT Office Visit [facility] - [facility] [address] [place], [place] [id number] Suni Aguayo NP 111 [facility], [facility], [address] [place] [id number] Health Maintenance Due Date Last Done Comments Hepatitis C Screen 2003 Hepatitis B Vaccine (1 of 3 - 19+ 3-dose series) 11/08 COVID-19 Vaccine ( season) 2025 Procedures Procedure Name Priority Date/Time Associated Diagnosis Comments CALPROTECTIN, F Routine 06/09/2025 16:00 EDT Diarrhea, unspecified FECAL BACTERIAL PATHOGENS BY PCR Routine 06/09/2025 16:00 EDT Diarrhea, unspecified PARASITE SCREEN, STOOL Routine 06/09/2025 16:00 EDT Diarrhea, unspecified from Last 3 Months Results * PARASITE SCREEN, STOOL (06/09/2025 16:00 EDT) Giardia and Cryptosporidium Cryptosporidium Antigen Neg and Giardia Antigen Neg Cryptosporidium Antigen Neg and Giardia Antigen Neg 14:58 EDT [facility] Feces Stool Collect / Unknown 06/09/2025 16:00 EDT 06/10/2025 17:59 EDT Melissa Borja MD MICROBIOLOGY - GENERAL NIMA CASTILLO Final Result [facility] [address] [place] [address] * FECAL BACTERIAL PATHOGENS BY PCR (06/09/2025 16:00 EDT) Salmonella PCR Negative Negative 06/10/2025 22:46 EDT [facility] Shigella/Enteroin vasive E. coli Negative Negative 06/10/2025 22:46 EDT [facility] HN LAB CAMPYLOBACTER PCR Negative Negative 06/10/2025 22:46 EDT [facility] Shiga Toxin PCR Negative Negative 22:46 EDT [facility] Feces Stool Collect / Unknown 06/09/2025 16:00 EDT 06/10/2025 17:59 EDT us Melissa Borja MD MICROBIOLOGY - GENERAL NIMA CASTILLO Final Result [facility] [address] [place] [address] * CALPROTECTIN, F (06/09/2025 16:00 EDT) Calprotectin,F <50.0 <50.0 (Normal) mcg/g 06/14/2025 20:08 EDT [facility] Comment: Test Performed by: [facility] [address] [place] [id number] [employer]: Zion Guerra Ph.D.; CLIA# [id number] Feces Stool Collect / Unknown 06/09/2025 16:00 EDT 06/10/2025 17:18 EDT us Melissa Borja MD GEN LAB UNIT COLLECT ORDERA BLES Final Result Performing Organization Address City/[facility]/ZIP Co de Phone Number [facility] [address] [place] [address] from Last 3 Months Insurance [facility] [place] [address] [facility] Advance Directives For more information, please contact: [phone] * Full Code (Latest Code Status on File) Date Activated Date Inactivated Comments 01/23/2024 16:57 01/23/2024 23:39 Question Answer Comments When the patient has NO PULSE: Full Code / CPR Who Made the Decision? Default/Not Discussed Care Teams Defect Cutter Relationship Specialty Start Date End Date Kathya Strauss DO [address] [place] [address] PCP - General Pediatrics - Primary Care 07/03/23
--- OUTSIDE RECORDS SUMMARY | 2025-06-27 09:43 | XMS_ITS | Encounter Summary ---
Author Organization [facility] Address [address] [place] [address] Phone Care Team Providers Care Bending Press Operator Name Role Phone Kathya Strauss DO Primary Care Provider [phone] Reason for Visit * Reason Comments Med Refill Encounter Details Date Type Department Care Team (Late st Contact Info) Description 09/20/2022 Refill [facility] [place] [address] [place] [address] Kathya Strauss DO [address] [place] [address] Anxiety Social History Tobacco Use Types Packs/Day [...] encounter Miscellaneous Notes * Telephone Encounter - Kemal Jiménez LPN - 09/20/2022 10:42 AM EST Pharm is requesting a refill on fluvoxamine 100mg. Last PE was 04/2022. Pt has apt scheduled for 09/25/22 documented in this encounter Plan of Treatment Not on file documented as of this encounter Visit Diagnoses Diagnosis Anxiety Anxiety state, unspecified documented in this encounter Care Teams Bending Press Operator Relationship Specialty Start Date End Date Kathya Strauss DO [address] [facility] [place] [address] PCP - General 05/16/17 05/24/24 documented as of this encounter
--- OUTSIDE RECORDS SUMMARY | 2025-06-27 09:43 | XMS_ITS | Encounter Summary ---
Author Organization [facility] Address [address] [place] [address] Phone Care Team Providers Care Foundry Manager Name Role Phone Kathya Strauss DO Primary Care Provider [phone] Encounter Details Date Type Department Care Team (Late st Contact Info) Description 07/30/2016 Documentation [facility] Family Medicine [address] [place], [place] [phone] Family Medicine, Physician [address], [place] [address] Social History Tobacco Use Types Packs/Day Years [...] on filedocumented in this encounter Care Teams Foundry Manager Relationship Specialty Start Date End Date Kathya Strauss DO [address] [place] [address] PCP - General 05/16/17 05/24/24 documented as of this encounter
--- OUTSIDE RECORDS SUMMARY | 2025-06-27 09:43 | XMS_ITS | Encounter Summary ---
Author Organization [facility] Address [address] [place] [address] Care Team Providers Care Produce Department Manager Name Role Phone Kathya Strauss DO Primary Care Provider [phone] Encounter Details Date Type Department Care Team (Late st Contact Info) Description 06/10/2025 Orders Only [facility] Pathology & Laboratory Medicine - [address] [address] Taryn, Damari Diarrhea, unspecified Social History Tobacco Use Types [...] 07/04/2025 7:00 EDT Appointment Kaylen Cruz [address] [place], [place] [address] 08/02/2025 15:00 EDT Office Visit [facility] OBGYN Services - [address] [address] Suni Aguayo NP 111 [facility], [facility], [address] [place] [phone] documented as of this encounter Procedures Procedure Name Priority Date/Time Associated Diagnosis Comments PARASITE SCREEN, STOOL Routine 06/09/2025 16:00 EDT Diarrhea, unspecified FECAL BACTERIAL PATHOGENS BY PCR Routine 06/09/2025 16:00 EDT Diarrhea, unspecified documented in this encounter Results * FECAL BACTERIAL PATHOGENS BY PCR (06/09/2025 16:00 EDT) Salmonella PCR Negative Negative 06/10/2025 22:46 EDT [facility] Shigella/Enteroin vasive E. coli Negative Negative 06/10/2025 22:46 EDT [facility] HN LAB CAMPYLOBACTER PCR Negative Negative 06/10/2025 22:46 EDT [facility] Shiga Toxin PCR Negative Negative 22:46 EDT [facility] Feces Stool Collect / Unknown 06/09/2025 16:00 EDT 06/10/2025 17:59 EDT Melissa Borja MD MICROBIOLOGY - GENERAL NIMA CASTILLO Final Result Performing Organization Address City/[facility]/ZIP Co de Phone Number [facility] [address] [place] [phone] * PARASITE SCREEN, STOOL (06/09/2025 16:00 EDT) Giardia and Cryptosporidium Cryptosporidium Antigen Neg and Giardia Antigen Neg Cryptosporidium Antigen Neg and Giardia Antigen Neg 14:58 EDT [facility] Feces Stool Collect / Unknown 06/09/2025 16:00 EDT 06/10/2025 17:59 EDT Melissa Borja MD MICROBIOLOGY - GENERAL NIMA CASTILLO Final Result [facility] [address] [place], [place] [address] documented in this encounter Visit Diagnoses Diagnosis Diarrhea, unspecified documented in this encounter Care Teams Produce Department Manager Relationship Specialty Start Date End Date Kathya Strauss DO [address] [place] [address] PCP - General Pediatrics - Primary Care 07/03/23 documented as of this encounter
--- OUTSIDE RECORDS SUMMARY | 2025-06-27 09:43 | XMS_ITS | Encounter Summary ---
Author Organization [facility] Address [address] [place] [address] Phone Care Team Providers Care Machine Bander And Cellophaner Helper Name Role Phone Kathya Strauss DO Primary Care Provider [phone] Reason for Visit * Reason Comments Med Refill Encounter Details Date Type Department Care Team (Late st Contact Info) Description 12/20/2022 Refill [facility] [place] [address] [place] [address] Kathya Strauss DO [address] [place] [address] Anxiety Social History Tobacco Use Types Packs/Day [...] Telephone Encounter - Kat Christianson LPN - 12/20/2022 11:47 AM EDT Pharm refill request for fluoxamine 100 mg Last sent on 09/20/22 Upcoming med check on 04/25/23 documented in this encounter Plan of Treatment Not on file documented as of this encounter Visit Diagnoses Diagnosis Anxiety Anxiety state, unspecified documented in this encounter Care Teams Machine Bander And Cellophaner Helper Relationship Specialty Start Date End Date Kathya Strauss DO 150 [facility] [place] [address] PCP - General 05/16/17 05/24/24 documented as of this encounter
--- OUTSIDE RECORDS SUMMARY | 2025-06-27 09:43 | XMS_ITS | Encounter Summary ---
Author Organization [facility] Address [address] [place] [address] Phone Care Team Providers Care Hot Car Charger Name Role Phone Kathya Strauss DO Primary Care Provider [phone] Reason for Visit * Reason Comments Med Refill Encounter Details Date Type Department Care Team (Late st Contact Info) Description 10/08/2021 Refill [facility] [place] [address] [place] [address] Kathya Strauss DO [address] [place] [address] Anxiety Social History Tobacco Use Types Packs/Day [...] encounter Miscellaneous Notes * Telephone Encounter - Justina Woodward LPN - 10/09/2021 3:29 PM EST Pharm requesting refill fluvoxamine 100mg. EH documented in this encounter Plan of Treatment Not on file documented as of this encounter Visit Diagnoses Diagnosis Anxiety Anxiety state, unspecified documented in this encounter Care Teams Hot Car Charger Relationship Specialty Start Date End Date Kathya Strauss DO [address] [place] [address] [place] Zhang [address] PCP - General 05/16/17 05/24/24 documented as of this encounter
--- OUTSIDE RECORDS SUMMARY | 2025-06-27 09:43 | XMS_ITS | Encounter Summary ---
Author Organization [facility] Address [address] [place] [address] Phone Care Team Providers Care Pump Installation And Servicer Name Role Phone Kathya Strauss DO Primary Care Provider [phone] Encounter Details Date Type Department Care Team (Late st Contact Info) Description 05/22/2017 Conversion Encounter [facility] [address] [place] [address] Social History Tobacco Use Types Packs/Day Years Used Date Smoking Tobacco: Never Comments:Never smoker Comments Unknown Sex and Gender Information Value Date Recorded Sex Assigned at Not on file Legal Sex Female 5:12 PM EDT Gender Identity Female 06/01/2021 1:02 PM EDT Sexual Orientation Straight 04/25/2023 1: 50 PM EDT documented as of this encounter Plan of Treatment Not on file documented as of this encounter Visit Diagnoses Not on filedocumented in this encounter Care Teams Pump Installation And Servicer Relationship Specialty Start Date End Date Kathya Strauss DO [address] [place] [address] PCP - General 05/16/17 05/24/24 documented as of this encounter
--- OUTSIDE RECORDS SUMMARY | 2025-06-27 09:43 | XMS_ITS | Clinical Summary ---
Author Organization [facility] Address [address] [place] [address] Phone Care Team Providers Care Heat Treating Bluer Name Role Phone Kathya Hauser MD Primary Care Provider Unavailab le Allergies No known active allergies Medications fluvoxaMINE (LUVOX) 100 MG tablet Take 100 mg by mouth. 08/29/2021 Active Active Problems No known active problems Social History Tobacco Use Types Packs/Day Years Used Date Smoking Tobacco: Never Smokeless Tobacco: Never Alcohol Use Standard Drinks/Week Comments Never 0 (1 standard drink = 0.6 oz pur e alcohol) Education Answer Date Recorded Are you interested in more education? Not on donaldo e 02/01/2023 Are you concerned about learning? Not on file 02/01/2023 No 02/01/2023 No 02/01/2023 Digital Access Answer Date Recorded No 03/02/2023 No 03/02/2023 No 03/02/2023 Reliable internet access at home? Not on file 03/02/2023 Device with a working camera? Not on file Comments Unknown Sex and Gender Information Value Date Recorded Sex Assigned at Not on file Legal Sex Female 10:45 AM EST Gender Identity Not on file Sexual Orientation Not on file Last Filed Vital Signs Vital Sign Reading Time Taken Comments Blood Pressure - - Pulse - - Temperature - - Respiratory Rate - - Oxygen Saturation - - Inhaled Oxygen Concentration - - Weight 97.5 kg (215 lb) 10/08/2021 12:02 PM EST Height 191.8 cm (6' 3.5 ) 10/08/2021 12:02 PM ES T Body Mass Index 26.52 10/08/2021 12:02 PM EST Plan of Treatment Health Maintenance Due Date Last Done Comments DEPRESSION SCREENING 2015 SMOKING Hx and SMOKELESS TOBACCO SCREENING 2016 CHLAMYDIA SCREENING 2019 MENINGOCOCCAL VACCINES (B) (1 of 2 - Standard) 2019 ADOLESCENT UNIVERSAL LIPID SCREENING 2020 HEPATITIS C SCREENING 2021 HIV ONE-TIME SCREENING (18-65 YEARS) 2021 PAP SMEAR 2024 Adult Td,Tdap Booster 02/15/2025 02/15/2015 COMBINED DTaP,Tdap,Td (7 - Td or Tdap) 02/15/2025 02/15/2015, 01/04/2008, 05/29/2005, Additional history exists INFLUENZA VACCINE (#1) 2025 , 08/04/2020, 06/13/2016, Additional history exists COVID-19 VACCINE ( season) 2025 HIB VACCINES Completed 02/12/2005, 05/06, 03/08/2004, Additional history exists PNEUMOCOCCAL VACCINES (0-49 years) Aged Out 02/12/2005, 05/17/2004, 03/08/2004, Additional history exists No longer eligible based on patient's age to complete this topic MMR VACCINES Completed 01/04/2008, 11/13/2004 HEPATITIS A VACCINES Completed 02/19/2016, 02/16/20 15 HPV VACCINES Completed 09/06/2016, 03/07, 02/19/2016 MENINGOCOCCAL VACCINES (ACWY) Completed 04/24/2020, 02/15/2015 Medical Devices Not on file Insurance HMO HMO O HMO O O HMO HMO HMO HMO HMO HMO O O O O O HMO Care Teams Heat Treating Bluer Relationship Specialty Start Date End Date Kathya Hauser MD PCP - General Pediatrics 10/08/21 Additional Source Comments The information contained in this document represents components of the legal health record. It is not the complete legal health record.[facility]
== END 2025-06-27 08:56 | disposition home or self-care (01) ==
DX: Z00.00 Encounter for general adult medical examination without abnormal findings (principal); F41.9 Anxiety disorder, unspecified; R19.7 Diarrhea, unspecified

== ENCOUNTER 2025-06-27 08:28 | Outpatient (REF) | payer OTHER, SELFPAY ==
[2025-06-27 09:17] LABS: MANUAL DIFF FLAG NO
[2025-06-27 09:39] LABS: Hematocrit 38.1 % (37.0-47.0); Hemoglobin 12.8 g/dl (12.0-16.0); Imm Gran Abs Auto 0.01 X10*3/uL (0.00-0.03); Imm Gran Pct Auto 0.2 % (0.0-0.4); Lymphocytes Absolute Auto 1.8 X10*3/uL (1.2-4.9); Mean Corpuscular HGB Conc 33.6 g/dl (31.0-35.0); Mean Corpuscular Hemoglobin 27.2 pg (27.0-33.0); Mean Corpuscular Volume 80.9 fL (80.0-98.0); NRBC Abs Auto 0.000 X10*3/uL (0.0-0.012); NRBC Pct Auto 0.0 /100WBC (0.0-0.2); Platelet Count 326 X10*3/uL (160-400); Red Blood Count 4.71 X10*6/uL (4.20-5.50); White Blood Count 6.6 X10*3/uL (4.8-10.8)
[2025-06-27 10:13] LABS: Alanine Aminotransferase 29 U/L (0-31); Albumin Level 4.6 g/dL (3.5-5.0); Alkaline Phosphatase 129 U/L (39-117); Anion Gap 10 (12-20); Aspartate Amino Transferase 23 U/L (5-31); Blood Urea Nitrogen 10 mg/dL (9-16); Calcium 9.8 mg/dL (8.4-10.2); Carbon Dioxide 25 mmol/L (22-29); Chloride 110 mmol/L (96-108); Estimated Glomerular Filt Rate > 60; Potassium 4.3 mmol/L (3.3-5.1); Sodium 141 mmol/L (135-145); Total Protein 7.9 g/dL (6.5-8.0)
[2025-06-27 10:32] LABS: Free T4 (Free Thyroxine) 0.88 ng/dL (0.71-1.85)
[2025-06-27 10:49] LABS: Folate 10.5 ng/mL (> or = 4.0); Vitamin B12 369 pg/mL (200-900)
== END 2025-06-27 08:29 | disposition home or self-care (01) ==
LOC: HO.LAB 08:28
DX: Z00.00 Encounter for general adult medical examination without abnormal findings (principal); Z13.21 Encounter for screening for nutritional disorder; F41.9 Anxiety disorder, unspecified; R19.7 Diarrhea, unspecified
CPT/HCPCS: 36415; 80053; 82306; 82607; 82746; 84439; 84443; 85025; 96127